=== PATIENT | female | born 1950 | race Caucasian/White ===

== ENCOUNTER 2017-09-08 08:06 | Inpatient (IN) | payer MEDICARE, OTHER ==
[~2017-09-08] VITALS: Ht 152.4 cm; Wt 57.8 kg
[~2017-09-08 08:06] MED LIST: ACET-285 PO; ALBUAER3 IN; ATEN-60 PO; GUAI200T2 PO; LEVO500T21 PO; OMEP20CA74 PO; PRED-188 PO; TRIATAB3 PO
[2017-09-08] MEDS ORDERED: IOHEXOL 350 MG/ML 100ML IJ ONE ×2 (08:25→10:11)
[2017-09-08] MEDS ORDERED: IPRATROPIUM BROM 0.5 MG/2.5ML INH SOL NEB ONE (08:30)
[2017-09-08] MEDS ORDERED: methylPREDNISolone SOD SUCC 125 MG/2 ML VL IV ONE (08:30)
[2017-09-08] MEDS ORDERED: ALBUTEROL SULF 2.5 MG/0.5ML(0.5%) NEB SOLN NEB ONE (08:30)
[2017-09-08] MEDS ORDERED: ALEN70SO OR (08:31)
[2017-09-08 08:59] LABS: Basophils # (auto) 0 uL; Eosinophils # (auto) 0 uL; Lymphocytes # (auto) 0.5 uL
[2017-09-08 09:01] LABS: Eosinophils % (auto) 0.1 % (0.0-7.0); Hematocrit 42.5 % (36.0-46.0); Hemoglobin 14.2 g/dL (12.2-16.2); Mean Corpuscular Hemoglobin 41.2 pg (28.0-32.0); Mean Corpuscular Hgb Conc. 33.4 g/dL (32.0-36.0); Mean Corpuscular Volume 123.5 fL (80.0-100.0); Monocytes # (auto) 0.7 uL; Neutrophils # (auto) 6.2 uL; Neutrophils % (auto) 83.9 % (37.0-80.0); Platelet Count (auto) 217 10^3/uL (140-450); Red Blood Cells 3.44 10^6/uL (4.0-5.20); Red Cell Distribution Width 14.1 % (11.8-14.3); White Blood Cell 7.4 10^3/uL (4.4-10.8)
[2017-09-08 09:12] LABS: INR 0.93 (0.9-1.15); Partial Thromboplastin Time 25.2 sec (23.78-33.04)
[2017-09-08 09:41] LABS: Alanine Aminotransferase 40 U/L (13-56); Albumin 3.5 g/dL (3.4-5.0); Alkaline Phosphatase 91 U/L (45-117); Anion Gap 5 (5-15); Aspartate Aminotransferase 72 U/L (15-37); BUN/Creatinine Ratio 25.8; Bilirubin, Total 0.5 mg/dL (0.2-1.0); Blood Urea Nitrogen 17 mg/dL (7-18); Calcium 8.4 mg/dL (8.5-10.1); Carbon Dioxide 33 mmol/L (21-32); Chloride 104 mmol/L (98-107); GFR African American 115 mL/min; GFR Non-African American 95 mL/min; Glucose 123 mg/dL (74-106); Potassium 4.1 mmol/L (3.5-5.1); Sodium 142 mmol/L (136-145); Total Protein 6.9 g/dL (6.4-8.2)
[2017-09-08] MEDS ORDERED: TEMAZEPAM 15 MG CAP PO PRN (10:15)
[2017-09-08] MEDS ORDERED: PROMETHAZINE HCL 25 MG/ML 1ML IV PRN (10:15)
[2017-09-08] MEDS ORDERED: ENOXAPARIN SOD 40 MG/0.4 ML SYRINGE SC ONE (10:15)
[2017-09-08] MEDS ORDERED: NITROGLYCERIN 0.4 MG SL TAB SL PRN (10:15)
[2017-09-08] MEDS ORDERED: LACTULOSE 20Gm/30ML SOLN PO PRN (10:15)
[2017-09-08] MEDS ORDERED: MORPHINE SULFATE 4 MG/ML SYR/VIAL IV PRN ×2 (10:15)
[2017-09-08] MEDS ORDERED: chlordiazePOXIDE HCL 25 MG CAP PO PRN (10:45)
[2017-09-08] MEDS ORDERED: THIAMINE 100mg/ml INJ (200mg/2ml VIAL) IV ONE (10:45)
[2017-09-08] MEDS: DOXYCYCLINE 100MG/250ML 250 ML IV SCH ×2 (12:23→22:31)
[2017-09-08] MEDS: SODIUM CHLORIDE 0.9% 1,000 ML IV SCH ×2 (12:23→23:21)
[2017-09-08] MEDS: methylPREDNISolone SOD SUCC 40 MG/ML VL IV SCH ×3 (12:24→23:39)
[2017-09-08] MEDS: chlordiazePOXIDE HCL 5 MG CAP PO SCH ×4 (12:24→23:39)
[2017-09-08 13:40] VITALS: BP 151/70
[2017-09-08] MEDS: ALBUTEROL SULF 2.5 MG/0.5ML(0.5%) NEB SOLN NEB PRN (16:38)
[2017-09-08 17:50] VITALS: BP 154/73
[2017-09-08] MEDS: ACETAMINOPHEN 500 MG TAB PO PRN (18:19)
[2017-09-08] MEDS: IPRATROPIUM BROM 0.5 MG/2.5ML INH SOL NEB SCH (19:04)
[2017-09-08] MEDS: ALBUTEROL SULF 2.5 MG/0.5ML(0.5%) NEB SOLN NEB SCH (19:05)
[2017-09-08 20:00] VITALS: BP 146/73
[2017-09-09] VITALS: BP 150/95
[2017-09-09] MEDS: ALBUTEROL SULF 2.5 MG/0.5ML(0.5%) NEB SOLN NEB SCH ×5 (00:17→18:56)
[2017-09-09] MEDS: IPRATROPIUM BROM 0.5 MG/2.5ML INH SOL NEB SCH ×5 (00:18→18:56)
[2017-09-09 04:11] VITALS: BP 128/64
[2017-09-09] MEDS: chlordiazePOXIDE HCL 5 MG CAP PO SCH ×4 (05:48→23:59)
[2017-09-09] MEDS: methylPREDNISolone SOD SUCC 40 MG/ML VL IV SCH ×4 (05:48→23:59)
[2017-09-09 06:06] LABS: Cholesterol 263 mg/dL (< 200); HDL Cholesterol 171 mg/dL (40-59); LDL Cholesterol 72 mg/dL (< 100); Triglycerides 112 mg/dL (< 150)
[2017-09-09] MEDS: ACETAMINOPHEN 500 MG TAB PO PRN (06:30)
[2017-09-09 08:00] VITALS: BP 140/74
[2017-09-09] MEDS: THIAMINE 100mg/ml INJ (200mg/2ml VIAL) IV SCH (09:55)
[2017-09-09] MEDS: ENOXAPARIN SOD 40 MG/0.4 ML SYRINGE SC SCH (09:55)
[2017-09-09] MEDS: DOXYCYCLINE 100MG/250ML 250 ML IV SCH (09:56)
[2017-09-09] MEDS: HYDROcodone-ACET 5/325MG TAB PO PRN ×2 (11:24→20:23)
[2017-09-09 12:00] VITALS: BP 139/84
[2017-09-09] MEDS: SODIUM CHLORIDE 0.9% 1,000 ML IV SCH (15:00)
[2017-09-09 16:00] VITALS: BP 136/75
[2017-09-09 20:00] VITALS: BP 149/82
[2017-09-09] MEDS: BUDESONIDE (INHALATION) 0.5 MG/2 ML NEB NEB SCH (22:00)
[2017-09-10] VITALS: BP 156/86
[2017-09-10] MEDS: ALBUTEROL SULF 2.5 MG/0.5ML(0.5%) NEB SOLN NEB PRN (01:09)
[2017-09-10 04:00] VITALS: BP 141/71
[2017-09-10] MEDS: chlordiazePOXIDE HCL 5 MG CAP PO SCH ×4 (06:00→23:46)
[2017-09-10] MEDS: methylPREDNISolone SOD SUCC 40 MG/ML VL IV SCH ×3 (06:12→17:37)
[2017-09-10] MEDS: IPRATROPIUM BROM 0.5 MG/2.5ML INH SOL NEB SCH ×5 (06:19→22:50)
[2017-09-10] MEDS: ALBUTEROL SULF 2.5 MG/0.5ML(0.5%) NEB SOLN NEB SCH ×5 (06:19→22:50)
[2017-09-10] MEDS ORDERED: MORPHINE SULFATE 8mg/ml INJ SDV IV PRN ×2 (06:45)
[2017-09-10] MEDS: SODIUM CHLORIDE 0.9% 1,000 ML IV SCH ×2 (07:00→17:37)
[2017-09-10] MEDS: ENOXAPARIN SOD 40 MG/0.4 ML SYRINGE SC SCH (09:33)
[2017-09-10] MEDS: THIAMINE 100mg/ml INJ (200mg/2ml VIAL) IV SCH (09:33)
[2017-09-10] MEDS: BUDESONIDE (INHALATION) 0.5 MG/2 ML NEB NEB SCH ×2 (10:25→18:47)
[2017-09-10] MEDS: LORazepam 0.5 MG TAB PO PRN ×2 (11:01→21:28)
[2017-09-10 12:32] VITALS: BP 141/65
[2017-09-10 16:41] VITALS: BP 139/87
[2017-09-10] MEDS: HYDROcodone-ACET 5/325MG TAB PO PRN (19:45)
[2017-09-10 22:00] VITALS: BP 152/89
[2017-09-11] MEDS: methylPREDNISolone SOD SUCC 40 MG/ML VL IV SCH ×5 (00:15→23:57)
[2017-09-11 05:00] VITALS: BP 152/80
[2017-09-11] MEDS: ALBUTEROL SULF 2.5 MG/0.5ML(0.5%) NEB SOLN NEB SCH ×4 (05:39→18:00)
[2017-09-11] MEDS: IPRATROPIUM BROM 0.5 MG/2.5ML INH SOL NEB SCH ×4 (05:39→18:00)
[2017-09-11] MEDS: chlordiazePOXIDE HCL 5 MG CAP PO SCH ×3 (06:00→18:00)
[2017-09-11] MEDS: SODIUM CHLORIDE 0.9% 1,000 ML IV SCH ×2 (06:22→18:01)
[2017-09-11 08:08] VITALS: BP 112/64
[2017-09-11 09:30] VITALS: BP 112/64
[2017-09-11] MEDS: THIAMINE 100mg/ml INJ (200mg/2ml VIAL) IV SCH (09:31)
[2017-09-11] MEDS: ENOXAPARIN SOD 40 MG/0.4 ML SYRINGE SC SCH (09:31)
[2017-09-11] MEDS: BUDESONIDE (INHALATION) 0.5 MG/2 ML NEB NEB SCH ×2 (10:14→20:40)
[2017-09-11] MEDS: LORazepam 0.5 MG TAB PO PRN ×2 (11:49→19:43)
[2017-09-11 13:00] VITALS: BP 132/81
[2017-09-11 16:59] VITALS: BP 150/74
[2017-09-11 22:00] VITALS: BP 152/84
[2017-09-12] MEDS: HYDROcodone-ACET 5/325MG TAB PO PRN (03:41)
[2017-09-12 05:00] VITALS: BP 154/85
[2017-09-12] MEDS: methylPREDNISolone SOD SUCC 40 MG/ML VL IV SCH ×4 (05:59→23:25)
[2017-09-12] MEDS: chlordiazePOXIDE HCL 5 MG CAP PO SCH ×5 (06:00→23:27)
[2017-09-12] MEDS: ALBUTEROL SULF 2.5 MG/0.5ML(0.5%) NEB SOLN NEB SCH ×4 (06:08→19:16)
[2017-09-12] MEDS: IPRATROPIUM BROM 0.5 MG/2.5ML INH SOL NEB SCH ×4 (06:08→19:16)
[2017-09-12 09:20] VITALS: BP 138/65
[2017-09-12] MEDS: BUDESONIDE (INHALATION) 0.5 MG/2 ML NEB NEB SCH ×2 (09:52→19:16)
[2017-09-12] MEDS: SODIUM CHLORIDE 0.9% 1,000 ML IV SCH ×2 (10:01→19:49)
[2017-09-12] MEDS: THIAMINE 100mg/ml INJ (200mg/2ml VIAL) IV SCH (10:02)
[2017-09-12] MEDS: ENOXAPARIN SOD 40 MG/0.4 ML SYRINGE SC SCH (10:02)
[2017-09-12] MEDS: LORazepam 0.5 MG TAB PO PRN (12:00)
[2017-09-12 13:04] VITALS: BP 121/81
[2017-09-12 16:23] VITALS: BP 139/69
[2017-09-12] MEDS ORDERED: diphenhdrAMINE HCL 25 MG CAP PO PRN (20:30)
[2017-09-12 21:58] VITALS: BP 160/86
[2017-09-13] MEDS: IPRATROPIUM BROM 0.5 MG/2.5ML INH SOL NEB SCH ×3 (05:22→10:13)
[2017-09-13] MEDS: ALBUTEROL SULF 2.5 MG/0.5ML(0.5%) NEB SOLN NEB SCH ×3 (05:22→10:13)
[2017-09-13 05:26] VITALS: BP 154/76
[2017-09-13] MEDS: methylPREDNISolone SOD SUCC 40 MG/ML VL IV SCH (05:43)
[2017-09-13] MEDS: chlordiazePOXIDE HCL 5 MG CAP PO SCH (06:00)
[2017-09-13 08:00] VITALS: BP 145/69
[2017-09-13] MEDS: BUDESONIDE (INHALATION) 0.5 MG/2 ML NEB NEB SCH ×2 (10:00→10:13)
[2017-09-13] MEDS: ENOXAPARIN SOD 40 MG/0.4 ML SYRINGE SC SCH (10:00)
[2017-09-13] MEDS: THIAMINE 100mg/ml INJ (200mg/2ml VIAL) IV SCH (10:00)
[2017-09-13] MEDS: SODIUM CHLORIDE 0.9% 1,000 ML IV SCH (10:01)
== END 2017-09-13 10:40 | disposition home or self-care (01) | DRG 189 ==
LOC: ER 08:06 → EDBD 08:06 → EDSEX 08:06 → TELE 08:07 → DOU IN ICU 17:50 → TELE-EAST 09-10 06:34
PROVIDERS: ADMIT Internal Medicine; ATTEND Internal Medicine Pulmonary Disease
PROC: 5A09357 Assistance with Respiratory Ventilation, Less than 24 Consecutive Hours, Continuous Positive Airway Pressure (ICD-10-PCS; principal; 2017-09-08)
DX: J96.20 Acute and chronic respiratory failure, unspecified whether with hypoxia or hypercapnia (principal); J44.1 Chronic obstructive pulmonary disease with (acute) exacerbation; Z99.81 Dependence on supplemental oxygen; I10 Essential (primary) hypertension; K21.9 Gastro-esophageal reflux disease without esophagitis; K44.9 Diaphragmatic hernia without obstruction or gangrene; F17.210 Nicotine dependence, cigarettes, uncomplicated; Z80.3 Family history of malignant neoplasm of breast; Z82.3 Family history of stroke; Z82.49 Family history of ischemic heart disease and other diseases of the circulatory system; Z82.62 Family history of osteoporosis; Z82.5 Family history of asthma and other chronic lower respiratory diseases; Z85.3 Personal history of malignant neoplasm of breast
CPT/HCPCS: 36415; 36600; 71045; 71275; 80053; 80061; 82805; 83880; 84484; 85025; 85610; 85730; 87070; 87081; 87205; 93005; 94640; 94660; 96372; 96374; 96375; J3490

== ENCOUNTER 2019-06-23 09:30 | Inpatient (IN) | payer MEDICARE, BC ==
[~2019-06-23] VITALS: Ht 152.4 cm; Wt 59.0 kg
[~2019-06-23 09:30] MED LIST changes: +ALEN70SO OR; -GUAI200T2 PO; -LEVO500T21 PO; -OMEP20CA74 PO; -TRIATAB3 PO
[2019-06-23 10:33] LABS: Basophils # (auto) 0 10 ^3/uL (0-0.2); Eosinophils # (auto) 0.1 10 ^3/uL (0-0.8); Hemoglobin 10.9 g/dL (12.2-16.2); Monocytes # (auto) 0.8 10 ^3/uL (0-1.3)
[2019-06-23 10:34] LABS: Basophils % (auto) 0.4 % (0.0-2.0); Eosinophils % (auto) 0.5 % (0.0-7.0); Lymphocytes # (auto) 2.7 10 ^3/uL (0.4-5.4); Lymphocytes % (auto) 24.8 % (10.0-50.0); Mean Corpuscular Volume 129.3 fL (80.0-100.0); Monocytes % (auto) 7.3 % (0.0-12.0); Neutrophils # (auto) 7.4 10 ^3/uL (1.6-8.6); Platelet Count (auto) 286 10^3/uL (140-450); Red Blood Cells 2.47 10^6/uL (4.0-5.20); Red Cell Distribution Width 15.4 % (11.8-14.3)
[2019-06-23] MEDS ORDERED: SODIUM CHLORIDE 0.9% 1,000 ML IV ONE (10:40)
[2019-06-23] MEDS ORDERED: ALBUTEROL SULF 2.5 MG/0.5ML(0.5%) NEB SOLN NEB ONE (10:45)
[2019-06-23] MEDS ORDERED: methylPREDNISolone SOD SUCC 125 MG/2 ML VL IV ONE (10:45)
[2019-06-23] MEDS ORDERED: IPRATROPIUM BROM 0.5 MG/2.5ML INH SOL NEB ONE (10:45)
[2019-06-23 10:57] LABS: Alanine Aminotransferase 13 U/L (13-56); Anion Gap 12 (5-15); Blood Urea Nitrogen 22 mg/dL (7-18); Calcium 7.3 mg/dL (8.5-10.1); Carbon Dioxide 24 mmol/L (21-32); Chloride 102 mmol/L (98-107); Glucose 89 mg/dL (74-106); Potassium 3.1 mmol/L (3.5-5.1); Sodium 138 mmol/L (136-145)
[2019-06-23 11:02] LABS: Alkaline Phosphatase 275 U/L (45-117); Aspartate Aminotransferase 60 U/L (15-37); BUN/Creatinine Ratio 17.7; Bilirubin, Total 1.8 mg/dL (0.2-1.0); GFR African American 55 mL/min; GFR Non-African American 46 mL/min; Total Protein 6.7 g/dL (6.4-8.2)
[2019-06-23] MEDS: MAGNESIUM SULFATE 1GM/100ML 100 ML IV SCH ×3 (12:48→15:31)
[2019-06-23] MEDS ORDERED: AZITHROMYCIN 500MG/ 250ML 250 ML IV ONE (13:45)
[2019-06-23] MEDS ORDERED: POTASSIUM EFFERVESENT TAB 25 MEQ PO ONE (13:45)
[2019-06-23] MEDS ORDERED: DOCUSATE SOD 100 MG CAP PO PRN (14:00)
[2019-06-23] MEDS ORDERED: ACETAMINOPHEN 500 MG TAB PO PRN (14:00)
[2019-06-23] MEDS ORDERED: NITROGLYCERIN 0.4 MG SL TAB SL PRN (14:00)
[2019-06-23] MEDS ORDERED: MORPHINE SULF INJ 2 MG/ML SYRINGE 1ML IV PRN ×2 (14:00)
[2019-06-23] MEDS ORDERED: ONDANSETRON HCL 4 MG/2 ML VIAL IV PRN (14:00)
[2019-06-23 14:09] VITALS: BP 109/49
[2019-06-23] MEDS ORDERED: UMEC1AER IN (15:18)
[2019-06-23] MEDS ORDERED: FLU220IH INH (15:18)
[2019-06-23] MEDS: SODIUM CHLORIDE 0.9% 1,000 ML IV SCH (15:31)
[2019-06-23 17:00] VITALS: BP 111/70
[2019-06-23 17:31] LABS: Urine Bacteria MOD /hpf (None Seen); Urine Blood 2+ /uL (Negative); Urine Hyaline Cast MOD /lpf (0 - 2); Urine Mucus FEW (None Seen); Urine Specific Gravity 1.021 (1.001-1.035); Urine Sperm PRESENT /hpf (None Seen); Urine WBC 3 /hpf (0 - 5)
[2019-06-23 17:36] LABS: INR 1.49 (0.9-1.15); Partial Thromboplastin Time 35.2 sec (23.64-32.05)
[2019-06-23] MEDS: LEVALBUTEROL HCL 1.25 MG/3 ML NEB NEB SCH ×2 (18:36→18:45)
[2019-06-23] MEDS: IPRATROPIUM BROM 0.5 MG/2.5ML INH SOL NEB SCH ×2 (18:36→18:45)
[2019-06-23 22:00] VITALS: BP 112/60
[2019-06-23] MEDS: FAMOTIDINE (10MG/ML) 2ML VL IV SCH (23:09)
[2019-06-23] MEDS: dilTIAZem HCL 60 MG TAB PO SCH (23:10)
[2019-06-24] MEDS: SODIUM CHLORIDE 0.9% 1,000 ML IV SCH ×2 (03:20→16:40)
[2019-06-24 05:00] VITALS: BP 100/53
[2019-06-24] MEDS: dilTIAZem HCL 60 MG TAB PO SCH ×3 (05:57→22:00)
[2019-06-24] MEDS: IPRATROPIUM BROM 0.5 MG/2.5ML INH SOL NEB SCH ×2 (07:00→12:47)
[2019-06-24] MEDS: LEVALBUTEROL HCL 1.25 MG/3 ML NEB NEB SCH ×3 (07:00→19:03)
[2019-06-24 09:00] VITALS: BP 102/61
[2019-06-24 09:53] LABS: Calcium 7.3 mg/dL (8.5-10.1); Magnesium 2.4 mg/dL (1.6-2.6); Potassium 3.8 mmol/L (3.5-5.1)
[2019-06-24 09:56] LABS: BUN/Creatinine Ratio 20.5; Bilirubin, Total 1.5 mg/dL (0.2-1.0); Total Protein 6.5 g/dL (6.4-8.2)
[2019-06-24] MEDS ORDERED: VANCOMYCIN PER PHARMACY 0 MG IV SCH (12:30)
[2019-06-24] MEDS ORDERED: VANCOMYCIN 1GM/250ML 250 ML IV ONE (12:30)
[2019-06-24] MEDS ORDERED: PHYTONADIONE (VIT K)10 MG/ML 1ML VIAL SUBCUT ONE (12:45)
[2019-06-24] MEDS ORDERED: PHYTONADIONE(VitK) ORAL Susp 10mg/10ml(1mg/ml) PO ONE (13:00)
[2019-06-24 17:00] VITALS: BP 101/52
[2019-06-24] MEDS: PIPERACILLIN-TAZOB 3.375GM 100 ML IV SCH (18:05)
[2019-06-24 20:00] VITALS: BP 111/58
[2019-06-24 22:00] VITALS: BP 111/58
[2019-06-24] MEDS: FAMOTIDINE (10MG/ML) 2ML VL IV SCH (22:00)
[2019-06-25] MEDS: LEVALBUTEROL HCL 1.25 MG/3 ML NEB NEB SCH ×4 (00:35→19:30)
[2019-06-25 05:52] LABS: Basophils # (auto) 0 10 ^3/uL (0-0.2); Basophils % (auto) 0.1 % (0.0-2.0); Eosinophils # (auto) 0 10 ^3/uL (0-0.8); Hematocrit 27.5 % (36.0-46.0); Hemoglobin 9.2 g/dL (12.2-16.2); Lymphocytes # (auto) 0.6 10 ^3/uL (0.4-5.4); Mean Corpuscular Hgb Conc. 33.5 g/dL (32.0-36.0); Mean Corpuscular Volume 128.3 fL (80.0-100.0); Monocytes # (auto) 1.9 10 ^3/uL (0-1.3); Monocytes % (auto) 11.9 % (0.0-12.0); Neutrophils # (auto) 13.2 10 ^3/uL (1.6-8.6); Platelet Count (auto) 259 10^3/uL (140-450); Red Blood Cells 2.14 10^6/uL (4.0-5.20); Red Cell Distribution Width 15.1 % (11.8-14.3); White Blood Cell 15.7 10^3/uL (4.4-10.8)
[2019-06-25 05:55] VITALS: BP 107/61
[2019-06-25] MEDS: IPRATROPIUM BROM 0.5 MG/2.5ML INH SOL NEB SCH ×3 (05:56→19:30)
[2019-06-25] MEDS: SODIUM CHLORIDE 0.9% 1,000 ML IV SCH ×2 (06:00→19:20)
[2019-06-25 06:06] LABS: INR 1.4 (0.9-1.15); Partial Thromboplastin Time 30.5 sec (23.64-32.05)
[2019-06-25] MEDS: dilTIAZem HCL 60 MG TAB PO SCH ×3 (06:16→22:00)
[2019-06-25 06:17] LABS: Potassium 3.8 mmol/L (3.5-5.1)
[2019-06-25] MEDS: PIPERACILLIN-TAZOB 3.375GM 100 ML IV SCH ×5 (06:17→23:09)
[2019-06-25 06:23] LABS: Bilirubin, Total 1.4 mg/dL (0.2-1.0)
[2019-06-25 09:00] VITALS: BP 107/50
[2019-06-25] MEDS ORDERED: PHYTONADIONE(VitK) ORAL Susp 10mg/10ml(1mg/ml) PO ONE (12:00)
[2019-06-25] MEDS: ASPirin 81 mg TAB PO SCH (12:11)
[2019-06-25] MEDS: VANCOMYCIN 500 MG in D5W 5% 100 ML IV SCH (12:31)
[2019-06-25 13:00] VITALS: BP 106/50
[2019-06-25] MEDS ORDERED: IOHEXOL 350 MG/ML 100ML IJ ONE (14:23)
[2019-06-25 17:00] VITALS: BP 104/51
[2019-06-25 22:00] VITALS: BP 106/42
[2019-06-25] MEDS: FAMOTIDINE (10MG/ML) 2ML VL IV SCH (22:20)
[2019-06-25] MEDS: ENOXAPARIN SOD 60 MG/0.6 ML SYRINGE SC SCH (22:21)
[2019-06-25] MEDS ORDERED: TEMAZEPAM 15 MG CAP PO ONE (22:30)
[2019-06-26 05:37] LABS: Basophils # (auto) 0 10 ^3/uL (0-0.2); Basophils % (auto) 0.4 % (0.0-2.0); Eosinophils # (auto) 0.1 10 ^3/uL (0-0.8); Eosinophils % (auto) 0.5 % (0.0-7.0); Hematocrit 28.6 % (36.0-46.0); Hemoglobin 9.4 g/dL (12.2-16.2); Lymphocytes # (auto) 0.5 10 ^3/uL (0.4-5.4); Lymphocytes % (auto) 5.3 % (10.0-50.0); Mean Corpuscular Hemoglobin 44.2 pg (28.0-32.0); Mean Corpuscular Volume 133.9 fL (80.0-100.0); Monocytes # (auto) 1.4 10 ^3/uL (0-1.3); Monocytes % (auto) 14.4 % (0.0-12.0); Neutrophils # (auto) 7.7 10 ^3/uL (1.6-8.6); Neutrophils % (auto) 79.4 % (37.0-80.0); Platelet Count (auto) 187 10^3/uL (140-450); Red Blood Cells 2.13 10^6/uL (4.0-5.20); Red Cell Distribution Width 15.7 % (11.8-14.3); White Blood Cell 9.7 10^3/uL (4.4-10.8)
[2019-06-26] MEDS: PIPERACILLIN-TAZOB 3.375GM 100 ML IV SCH ×4 (05:44→23:30)
[2019-06-26 05:58] LABS: Alanine Aminotransferase 18 U/L (13-56); Albumin 1.9 g/dL (3.4-5.0); Anion Gap 6 (5-15); Aspartate Aminotransferase 73 U/L (15-37); BUN/Creatinine Ratio 23.3; Blood Urea Nitrogen 24 mg/dL (7-18); Calcium 7.1 mg/dL (8.5-10.1); Carbon Dioxide 25 mmol/L (21-32); Chloride 103 mmol/L (98-107); GFR African American 68 mL/min; GFR Non-African American 56 mL/min; Glucose 84 mg/dL (74-106); Sodium 134 mmol/L (136-145)
[2019-06-26 06:00] LABS: Alkaline Phosphatase 197 U/L (45-117); Bilirubin, Total 1.5 mg/dL (0.2-1.0); Total Protein 5.6 g/dL (6.4-8.2)
[2019-06-26] MEDS: dilTIAZem HCL 60 MG TAB PO SCH ×3 (06:00→21:35)
[2019-06-26] MEDS: IPRATROPIUM BROM 0.5 MG/2.5ML INH SOL NEB SCH ×3 (06:23→19:34)
[2019-06-26] MEDS: LEVALBUTEROL HCL 1.25 MG/3 ML NEB NEB SCH ×3 (06:23→19:34)
[2019-06-26] MEDS ORDERED: fentaNYL CITRATE 100 MCG/2 ML VL IV ONE (08:30)
[2019-06-26] MEDS ORDERED: NALOXONE HCL 0.4 MG/ML VIAL IV ONE (08:30)
[2019-06-26] MEDS ORDERED: MIDAZOLAM HCL 1MG/1ML-2 ML VIAL IV ONE (08:30)
[2019-06-26] MEDS ORDERED: FLUMAZENIL 0.1 MG/ML INJ 10ML MDV IV ONE (08:30)
[2019-06-26] MEDS: SODIUM CHLORIDE 0.9% 1,000 ML IV SCH ×2 (08:40→21:45)
[2019-06-26 09:00] VITALS: BP 97/57
[2019-06-26 09:20] VITALS: BP 106/42
[2019-06-26] MEDS ORDERED: NALOXONE HCL 0.4 MG/ML VIAL ONE (09:50)
[2019-06-26] MEDS: ENOXAPARIN SOD 60 MG/0.6 ML SYRINGE SC SCH (09:55)
[2019-06-26] MEDS: ASPirin 81 mg TAB PO SCH (09:55)
[2019-06-26] MEDS ORDERED: LIDOCAINE 2%HCL (LOCAL ANESTH.) INJ 20ML MDV ONE (13:31)
[2019-06-26 15:00] VITALS: BP 123/58
[2019-06-26] MEDS: VANCOMYCIN 500 MG in D5W 5% 100 ML IV SCH (15:33)
[2019-06-26 18:09] VITALS: BP 103/50
[2019-06-26] MEDS: HYDROcodone-ACET 5/325MG TAB PO PRN (19:10)
[2019-06-26] MEDS: FAMOTIDINE (10MG/ML) 2ML VL IV SCH (21:35)
[2019-06-26 22:00] VITALS: BP 98/55
[2019-06-27 05:00] VITALS: BP 114/54
[2019-06-27] MEDS: PIPERACILLIN-TAZOB 3.375GM 100 ML IV SCH ×4 (05:46→23:34)
[2019-06-27 05:56] LABS: Basophils # (auto) 0 10 ^3/uL (0-0.2); Basophils % (auto) 0.1 % (0.0-2.0); Eosinophils # (auto) 0.2 10 ^3/uL (0-0.8); Hematocrit 23.7 % (36.0-46.0); Hemoglobin 7.9 g/dL (12.2-16.2); Lymphocytes # (auto) 0.6 10 ^3/uL (0.4-5.4); Lymphocytes % (auto) 7.3 % (10.0-50.0); Mean Corpuscular Hemoglobin 43.8 pg (28.0-32.0); Mean Corpuscular Hgb Conc. 33.3 g/dL (32.0-36.0); Mean Corpuscular Volume 131.3 fL (80.0-100.0); Monocytes % (auto) 12.4 % (0.0-12.0); Neutrophils # (auto) 6.3 10 ^3/uL (1.6-8.6); Neutrophils % (auto) 78.2 % (37.0-80.0); Platelet Count (auto) 139 10^3/uL (140-450); Red Cell Distribution Width 14.9 % (11.8-14.3)
[2019-06-27] MEDS: dilTIAZem HCL 60 MG TAB PO SCH ×3 (06:00→21:45)
[2019-06-27 06:16] LABS: Albumin 1.4 g/dL (3.4-5.0); Potassium 3.1 mmol/L (3.5-5.1)
[2019-06-27 06:20] LABS: BUN/Creatinine Ratio 20.5; Bilirubin, Total 1.4 mg/dL (0.2-1.0); Total Protein 4.5 g/dL (6.4-8.2)
[2019-06-27] MEDS: IPRATROPIUM BROM 0.5 MG/2.5ML INH SOL NEB SCH ×3 (06:51→19:17)
[2019-06-27] MEDS: LEVALBUTEROL HCL 1.25 MG/3 ML NEB NEB SCH ×3 (06:51→19:17)
[2019-06-27 09:00] VITALS: BP 101/57
[2019-06-27] MEDS: ASPirin 81 mg TAB PO SCH (09:50)
[2019-06-27] MEDS: SODIUM CHLORIDE 0.9% 1,000 ML IV SCH (09:51)
[2019-06-27] MEDS ORDERED: POTASSIUM CHL 20 Meq TABLET PO ONE (12:45)
[2019-06-27 13:00] VITALS: BP 97/58
[2019-06-27] MEDS ORDERED: LIDOCAINE 2%HCL (LOCAL ANESTH.) INJ 20ML MDV ONE (13:12)
[2019-06-27 17:00] VITALS: BP 112/53
[2019-06-27] MEDS: VANCOMYCIN 500 MG in D5W 5% 100 ML IV SCH (17:53)
[2019-06-27] MEDS: FAMOTIDINE (10MG/ML) 2ML VL IV SCH (21:45)
[2019-06-27 22:00] VITALS: BP 103/58
[2019-06-28] MEDS: SODIUM CHLORIDE 0.9% 1,000 ML IV SCH ×2 (00:40→13:46)
[2019-06-28 05:00] VITALS: BP 107/50
[2019-06-28] MEDS: PIPERACILLIN-TAZOB 3.375GM 100 ML IV SCH ×4 (05:31→23:55)
[2019-06-28] MEDS: dilTIAZem HCL 60 MG TAB PO SCH ×3 (05:36→22:00)
[2019-06-28] MEDS: LEVALBUTEROL HCL 1.25 MG/3 ML NEB NEB SCH ×3 (06:04→18:20)
[2019-06-28] MEDS: IPRATROPIUM BROM 0.5 MG/2.5ML INH SOL NEB SCH ×3 (06:04→18:20)
[2019-06-28 09:00] VITALS: BP 106/63
[2019-06-28] MEDS: ASPirin 81 mg TAB PO SCH (09:48)
[2019-06-28 13:00] VITALS: BP 100/49
[2019-06-28] MEDS: VANCOMYCIN 500 MG in D5W 5% 100 ML IV SCH (13:46)
[2019-06-28] MEDS ORDERED: POTASSIUM CHL 20 Meq TABLET PO ONE (14:45)
[2019-06-28] MEDS ORDERED: FUROSEMIDE 20 MG/2 ML VIAL IV ONE (14:45)
[2019-06-28 17:00] VITALS: BP 104/87
[2019-06-28] MEDS: MAGNESIUM SULFATE 1GM/100ML 100 ML IV SCH ×2 (17:50→19:02)
[2019-06-28 22:00] VITALS: BP 120/56
[2019-06-28] MEDS: FAMOTIDINE (10MG/ML) 2ML VL IV SCH (22:31)
[2019-06-29] VITALS (7 sets, daily range): BP systolic 99–120; BP diastolic 45–65
[2019-06-29] MEDS: IPRATROPIUM BROM 0.5 MG/2.5ML INH SOL NEB SCH ×3 (06:11→18:12)
[2019-06-29] MEDS: LEVALBUTEROL HCL 1.25 MG/3 ML NEB NEB SCH ×3 (06:11→18:12)
[2019-06-29] MEDS: PIPERACILLIN-TAZOB 3.375GM 100 ML IV SCH ×3 (06:16→18:27)
[2019-06-29] MEDS: dilTIAZem HCL 60 MG TAB PO SCH ×3 (06:16→22:07)
[2019-06-29] MEDS: ASPirin 81 mg TAB PO SCH (10:21)
[2019-06-29] MEDS: FUROSEMIDE 20 MG/2 ML VIAL IV SCH (10:21)
[2019-06-29 10:23] LABS: BUN/Creatinine Ratio 16.5; Calcium 7.3 mg/dL (8.5-10.1); Magnesium 1.7 mg/dL (1.6-2.6); Potassium 3.3 mmol/L (3.5-5.1)
[2019-06-29] MEDS: VANCOMYCIN 500 MG in D5W 5% 100 ML IV SCH (14:39)
[2019-06-29] MEDS: FAMOTIDINE (10MG/ML) 2ML VL IV SCH (22:06)
[2019-06-30] MEDS: PIPERACILLIN-TAZOB 3.375GM 100 ML IV SCH ×4 (00:08→17:58)
[2019-06-30 05:00] VITALS: BP 104/52
[2019-06-30] MEDS: dilTIAZem HCL 60 MG TAB PO SCH ×3 (05:35→22:17)
[2019-06-30 05:38] LABS: Basophils # (auto) 0.1 10 ^3/uL (0-0.2); Lymphocytes # (auto) 0.5 10 ^3/uL (0.4-5.4); Lymphocytes % (auto) 4.6 % (10.0-50.0)
[2019-06-30 05:44] LABS: Basophils % (auto) 0.7 % (0.0-2.0); Eosinophils # (auto) 0.6 10 ^3/uL (0-0.8); Eosinophils % (auto) 5.1 % (0.0-7.0); Hematocrit 27.2 % (36.0-46.0); Hemoglobin 9.3 g/dL (12.2-16.2); Mean Corpuscular Hemoglobin 43.8 pg (28.0-32.0); Mean Corpuscular Hgb Conc. 34.1 g/dL (32.0-36.0); Mean Corpuscular Volume 128.2 fL (80.0-100.0); Monocytes # (auto) 1.5 10 ^3/uL (0-1.3); Monocytes % (auto) 13.7 % (0.0-12.0); Neutrophils # (auto) 8.4 10 ^3/uL (1.6-8.6); Neutrophils % (auto) 75.9 % (37.0-80.0); Platelet Count (auto) 137 10^3/uL (140-450); Red Blood Cells 2.12 10^6/uL (4.0-5.20); Red Cell Distribution Width 13.9 % (11.8-14.3); White Blood Cell 11.1 10^3/uL (4.4-10.8)
[2019-06-30] MEDS: LEVALBUTEROL HCL 1.25 MG/3 ML NEB NEB SCH ×3 (06:42→18:59)
[2019-06-30] MEDS: IPRATROPIUM BROM 0.5 MG/2.5ML INH SOL NEB SCH ×3 (06:42→18:59)
[2019-06-30 09:00] VITALS: BP 100/50
[2019-06-30] MEDS: ASPirin 81 mg TAB PO SCH (10:09)
[2019-06-30] MEDS: FUROSEMIDE 20 MG/2 ML VIAL IV SCH (10:09)
[2019-06-30 13:00] VITALS: BP 113/48
[2019-06-30] MEDS: VANCOMYCIN 500 MG in D5W 5% 100 ML IV SCH (14:04)
[2019-06-30 16:43] VITALS: BP 110/49
[2019-06-30 22:00] VITALS: BP 110/55
[2019-06-30] MEDS: FAMOTIDINE (10MG/ML) 2ML VL IV SCH (22:16)
[2019-07-01] MEDS: PIPERACILLIN-TAZOB 3.375GM 100 ML IV SCH ×4 (00:14→19:30)
[2019-07-01 05:46] VITALS: BP 115/59
[2019-07-01] MEDS: dilTIAZem HCL 60 MG TAB PO SCH ×3 (06:20→22:01)
[2019-07-01 09:02] VITALS: BP 104/50
[2019-07-01] MEDS: IPRATROPIUM BROM 0.5 MG/2.5ML INH SOL NEB SCH ×4 (09:39→19:19)
[2019-07-01] MEDS: LEVALBUTEROL HCL 1.25 MG/3 ML NEB NEB SCH ×4 (09:39→19:19)
[2019-07-01] MEDS: FUROSEMIDE 20 MG/2 ML VIAL IV SCH (10:00)
[2019-07-01] MEDS: ASPirin 81 mg TAB PO SCH (10:11)
[2019-07-01 12:30] LABS: BUN/Creatinine Ratio 16.1; Calcium 7.3 mg/dL (8.5-10.1)
[2019-07-01 12:53] LABS: Potassium 2.8 mmol/L (3.5-5.1)
[2019-07-01 13:00] VITALS: BP 109/52
[2019-07-01] MEDS ORDERED: POTASSIUM CHL 20 Meq TABLET PO ONE (13:00)
[2019-07-01 16:15] VITALS: BP 124/49
[2019-07-01] MEDS: VANCOMYCIN 500 MG in D5W 5% 100 ML IV SCH (17:03)
[2019-07-01 22:00] VITALS: BP 109/65
[2019-07-01] MEDS: FAMOTIDINE (10MG/ML) 2ML VL IV SCH (22:01)
[2019-07-02] MEDS: PIPERACILLIN-TAZOB 3.375GM 100 ML IV SCH ×5 (01:21→23:37)
[2019-07-02 06:00] VITALS: BP 117/65
[2019-07-02] MEDS: LEVALBUTEROL HCL 1.25 MG/3 ML NEB NEB SCH ×3 (06:01→18:54)
[2019-07-02] MEDS: IPRATROPIUM BROM 0.5 MG/2.5ML INH SOL NEB SCH ×3 (06:01→18:54)
[2019-07-02] MEDS: dilTIAZem HCL 60 MG TAB PO SCH ×3 (06:13→22:22)
[2019-07-02 06:55] LABS: Hemoglobin 8.9 g/dL (12.2-16.2)
[2019-07-02 06:59] LABS: Hematocrit 25.8 % (36.0-46.0); Mean Corpuscular Hemoglobin 43.9 pg (28.0-32.0); Mean Corpuscular Hgb Conc. 34.4 g/dL (32.0-36.0); Mean Corpuscular Volume 127.6 fL (80.0-100.0); Platelet Count (auto) 115 10^3/uL (140-450); Red Blood Cells 2.02 10^6/uL (4.0-5.20); Red Cell Distribution Width 13.7 % (11.8-14.3)
[2019-07-02 07:07] LABS: Band Neutrophils % (manual) 0; Basophils % (manual) 0 (0.0-2.0); Blast Cells 0; Metamyelocytes % 0; Myelocytes % 0; Promyelocytes % 0; Reactive Lymphocytes 0
[2019-07-02 07:11] LABS: BUN/Creatinine Ratio 19.3; Calcium 7.1 mg/dL (8.5-10.1)
[2019-07-02 07:52] LABS: Eosinophils % (manual) 1 (0-7); Lymphocytes % (manual) 6 (10.0-50.0); Monocytes % (manual) 12 (0-12)
[2019-07-02 09:03] VITALS: BP 108/60
[2019-07-02] MEDS: ASPirin 81 mg TAB PO SCH (09:35)
[2019-07-02] MEDS: FUROSEMIDE 20 MG/2 ML VIAL IV SCH (09:35)
[2019-07-02 13:00] VITALS: BP 94/58
[2019-07-02 16:57] VITALS: BP 112/54
[2019-07-02] MEDS: VANCOMYCIN 500 MG in D5W 5% 100 ML IV SCH (17:38)
[2019-07-02 22:00] VITALS: BP 109/60
[2019-07-02] MEDS: FAMOTIDINE (10MG/ML) 2ML VL IV SCH (22:22)
[2019-07-03 03:06] VITALS: BP 109/60
[2019-07-03 05:45] VITALS: BP 111/72
[2019-07-03] MEDS: dilTIAZem HCL 60 MG TAB PO SCH ×2 (06:01→14:00)
[2019-07-03] MEDS: PIPERACILLIN-TAZOB 3.375GM 100 ML IV SCH ×2 (06:01→12:49)
[2019-07-03] MEDS: IPRATROPIUM BROM 0.5 MG/2.5ML INH SOL NEB SCH ×2 (06:09→11:24)
[2019-07-03] MEDS: LEVALBUTEROL HCL 1.25 MG/3 ML NEB NEB SCH ×2 (06:09→11:24)
[2019-07-03] MEDS: HYDROcodone-ACET 5/325MG TAB PO PRN (06:13)
[2019-07-03 09:00] VITALS: BP 102/56
[2019-07-03] MEDS: FUROSEMIDE 20 MG/2 ML VIAL IV SCH (10:00)
[2019-07-03] MEDS: ASPirin 81 mg TAB PO SCH (10:10)
[2019-07-03] MEDS ORDERED: IOHEXOL 300 MG/ML 100ML BOTTLE IJ ONE (11:28)
[2019-07-03] MEDS ORDERED: POTASSIUM CHL 20 Meq TABLET PO ONE (11:30)
[2019-07-03 13:00] VITALS: BP 122/66
[2019-07-03 14:01] VITALS: BP 102/56
== END 2019-07-03 14:45 | disposition home health service (06) | DRG 871 ==
LOC: EDBD 09:30 → ER 09:34 → TELE 09:35 → TELE-WESTW 14:56
PROVIDERS: ADMIT Nurse Practitioner Acute Care; ATTEND Family Medicine
PROC: 0W9B30Z Drainage of Left Pleural Cavity with Drainage Device, Percutaneous Approach (ICD-10-PCS; principal; 2019-06-26)
PROC: 0BBG3ZX Excision of Left Upper Lung Lobe, Percutaneous Approach, Diagnostic (ICD-10-PCS; 2019-06-26)
PROC: 0W29X0Z Change Drainage Device in Right Pleural Cavity, External Approach (ICD-10-PCS; 2019-06-27)
DX: A41.9 Sepsis, unspecified organism (principal); J18.9 Pneumonia, unspecified organism; J96.21 Acute and chronic respiratory failure with hypoxia; N17.0 Acute kidney failure with tubular necrosis; I50.33 Acute on chronic diastolic (congestive) heart failure; E43 Unspecified severe protein-calorie malnutrition; J44.1 Chronic obstructive pulmonary disease with (acute) exacerbation; N39.0 Urinary tract infection, site not specified; I13.0 Hypertensive heart and chronic kidney disease with heart failure and stage 1 through stage 4 chronic kidney disease, or unspecified chronic kidney disease; J93.9 Pneumothorax, unspecified; R18.8 Other ascites; I48.91 Unspecified atrial fibrillation; K74.60 Unspecified cirrhosis of liver; N18.3 Chronic kidney disease, stage 3 (moderate); E87.6 Hypokalemia; E83.42 Hypomagnesemia; Z68.25 Body mass index [BMI] 25.0-25.9, adult; D63.8 Anemia in other chronic diseases classified elsewhere; F17.210 Nicotine dependence, cigarettes, uncomplicated; I25.10 Atherosclerotic heart disease of native coronary artery without angina pectoris; K44.9 Diaphragmatic hernia without obstruction or gangrene; M81.0 Age-related osteoporosis without current pathological fracture; K76.0 Fatty (change of) liver, not elsewhere classified; K21.9 Gastro-esophageal reflux disease without esophagitis; Z80.3 Family history of malignant neoplasm of breast; Z82.3 Family history of stroke; Z82.49 Family history of ischemic heart disease and other diseases of the circulatory system; Z82.5 Family history of asthma and other chronic lower respiratory diseases; Z85.3 Personal history of malignant neoplasm of breast; Z99.81 Dependence on supplemental oxygen; Z82.62 Family history of osteoporosis
CPT/HCPCS: 10022; 36415; 71045; 71046; 71250; 71275; 74177; 77002; 77012; 78582; 80048; 80053; 80202; 81001; 82140; 82607; 83010; 83615; 83735; 83880; 84132; 84436; 84443; 84484; 85007; 85025; 85027; 85045; 85379; 85610; 85730; 86880; 87040; 87086; 87804; 93005; 93306; 93970; 94640; 96361; 96374; 97116; 97163; 97530; A4223; C1729; G0378; J2250; J2543; J3490; J7060